=== PATIENT | female | born 1955 ===

== ENCOUNTER 2022-08-11 10:40 | Outpatient (CLI) | payer OTHER | END 2022-08-11 10:43 | disposition home or self-care (01) | LOC: SONOGRAMA 10:40 | PROVIDERS: ATTEND Pathology Anatomic Pathology & Clinical Pathology | DX: C73 Malignant neoplasm of thyroid gland (principal); D44.0 Neoplasm of uncertain behavior of thyroid gland; E07.9 Disorder of thyroid, unspecified; E04.2 Nontoxic multinodular goiter ==